=== PATIENT | female | born 1960 | race Caucasian/White ===

== ENCOUNTER 2017-09-06 14:03 | Emergency (ER) | payer OTHER ==
--- NOTE | 2017-09-06 14:28 | EDPHY ---
H & P Stated Complaint: vaginal itching and burning x 2 days Time Seen by Provider: 09/06/17 14:18 HPI/ROS: CHIEF COMPLAINT: Vaginal itching HISTORY OF PRESENT ILLNESS: 57-year-old female presents with vaginal itching. She recently completed a course of antibiotics for urinary tract infection. After completion of antibiotics, she developed vaginal itchiness and discharge. She was diagnosed with a yeast infection and placed on Diflucan. She took 2 doses of Diflucan and the symptoms completely resolved. However she developed recurrent vaginal discharge and itchiness yesterday. History of multiple vaginal yeast infections in the past, occasionally requires multiple days of Diflucan to resolve. Has used Monistat and other vaginal preparations without alleviation in sx in past. Otherwise asymptomatic. - Medical/Surgical History Hx Asthma: No Hx Chronic Respiratory Disease: No Hx Diabetes: No Hx Cardiac Disease: No Hx Renal Disease: No Hx Cirrhosis: No Hx Alcoholism: No Hx HIV/AIDS: No Hx Splenectomy or Spleen Trauma: No Other PMH: Psych - Social History Smoking Status: Never smoked Alcohol Use: Sober - Physical Exam Exam: General Appearance: Alert, pleasant Eyes: Pupils equal and round, no conjunctival pallor ENT, Mouth: Mucous membranes moist Neck: Normal inspection Respiratory: Normal respiratory rate Cardiovascular: Regular rate and rhythm Gastrointestinal: Abdomen is soft and nontender Neurological: A&O, nonfocal exam Skin: Warm and dry Extremities: Normal inspection Psychiatric: Mood and affect normal Constitutional: Initial Vital Signs Temperature (C) 37.0 C 09/06/17 14:07 Heart Rate 84 09/06/17 14:07 Respiratory Rate 16 09/06/17 14:07 O2 Sat (%) 97 09/06/17 14:07 O2 Delivery Mode Room Air Allergies/Adverse Reactions: penicillin Allergy (Verified 08/31/15 11:28) Sulfa (Sulfonamide Antibiotics) Allergy (Verified 08/31/15 11:28) Home Medications: Medication Instructions Recorded Doxepin HCl [Silenor] 0 mg PO DAILY 10/22/14 Venlafaxine Xr [Effexor Xr] 0 mg PO 10/22/14 lamoTRIgine [LaMICtal] 0 10/22/14 Fluconazole [Diflucan (*)] 150 mg PO DAILY #10 tab 09/06/17 Lipitor 09/06/17 Medical Decision Making ED Course/Re-evaluation: This patient presents with recurrent vaginal yeast infection. Diflucan prescribed. Follow up with PCP if symptoms do not resolve. Departure - Departure Disposition: Home, Routine, Self-Care Clinical Impression: Vaginal yeast infection Condition: Good Instructions: Yeast Infection (ED) Referrals: Julita Flores DO [Primary Care Provider] - As per Instructions Prescriptions: Fluconazole [Diflucan (*)] 150 mg PO DAILY #10 tab
== END 2017-09-06 14:41 | disposition home or self-care (01) ==
DX: B37.3 Candidiasis of vulva and vagina (principal)

== ENCOUNTER 2017-09-21 19:28 | Emergency (ER) | payer OTHER ==
[2017-09-21 19:37] VITALS: BP 114/72
--- NOTE | 2017-09-21 19:51 | EDPHY ---
General Time Seen by Provider: 09/21/17 19:46 Narrative: CHIEF COMPLAINT: "Bladder pain" HISTORY OF PRESENT ILLNESS: Patient presents with complaints of lower abdominal and "bladder pain." Has been present on off for a month. She was diagnosed with 1st part of the month with urinary tract infection treated with ciprofloxacin. She developed vaginal use infection, she was treated orally with Diflucan x2. She had resolution of the candidal infection, but she says the UTI has not fully gone away. She has discomfort with urination, frequent urination, incomplete urination. She has no flank pain. No fever, chills. She does have some vaginal discomfort but reports a recent estrogen ring implant. No modifying factors. She has no other associated complaints or modifying factors. REVIEW OF SYSTEMS: Ten systems reviewed and are negative unless otherwise noted in the HPI PCP: Aydee Dinero SPECIALISTS: [facility] PAST MEDICAL HISTORY: Bipolar disorder, recurrent UTIs, hypothyroid PAST SURGICAL HISTORY: No recent surgeries SOCIAL HISTORY: Nonsmoker. Lives here independently. FAMILY HISTORY: Noncontributory EXAMINATION General Appearance: Alert, no distress Head: normocephalic, atraumatic Eyes: Pupils equal and round, no conjunctival pallor or injection ENT, Mouth: Mucous membranes moist Neck: Normal inspection, supple, non-tender Respiratory: Lungs are clear to auscultation Cardiovascular: Regular rate and rhythm Gastrointestinal: Abdomen is soft and nondistended. There is mild tenderness suprapubic abdomen. No rebound. No guarding. No palpable masses. No CVA tenderness. Back: non-tender, no bony abnormalities Neurological: A&O, nonfocal, normal gait Skin: Warm and dry, no rash Extremities: Nontender, no pedal edema Psychiatric: Mood and affect normal DIFFERENTIAL DIAGNOSES: Including but not limited to cystitis, in no cystitis, urethritis, pyelonephritis, UTI, vaginitis MDM: 7:50 P.M. Lower abdominal discomfort described as bladder pain and discomfort. No flank pain. No fever. No nausea vomiting. Abdominal exam is completely benign. Urinalysis has been provided. 8:05 p.m. Urinalysis does reveal evidence of urinary tract infection. Patient does not want a pelvic exam performed she has have 1 done recently. I do feel that she warrants antibiotics for this and she may need antibiotics changed, once a urine culture results, which I have ordered. She has benign abdominal examination with normal vital signs, I do not feel she warrants imaging or further laboratory studies at this time. She agrees with this. I have ordered Keflex after discussing with attending physician. She has instructions to follow up with primary care physician Dr. Ocampo for further struck shins and care. ED precautions for any fever, flank pain, nausea vomiting. She is comfortable this plan and discharged home stable condition. SUPERVISION: Patient was independently examined, but I discussed the case with my secondary supervising physician Dr. Lyn - History Smoking Status: Never smoked - Objective Vital Signs: Initial Vital Signs Temperature (C) 98.1 F 09/21/17 19:33 Heart Rate 75 09/21/17 19:33 Respiratory Rate 18 09/21/17 19:33 Blood Pressure 114/72 09/21/17 19:33 O2 Sat (%) 95 09/21/17 19:33 O2 Delivery Mode Room Air Allergies/Adverse Reactions: penicillin Allergy (Verified 08/31/15 11:28) Sulfa (Sulfonamide Antibiotics) Allergy (Verified 08/31/15 11:28) Home Medications: Medication Instructions Recorded lamoTRIgine [LaMICtal] 0 10/22/14 Lipitor 09/06/17 Cephalexin [Keflex (*)] 500 mg PO BID #14 cap 09/21/17 Synthroid 09/21/17 Zoloft 100mg (*) 09/21/17 Microbiology Results: MICROBIOLOGY 09/21/17 19:40 Urine,Clean Catch Urine Culture - Preliminary Four [place] Types Departure - Departure Disposition: Home, Routine, Self-Care Clinical Impression: Acute cystitis with hematuria, Suprapubic pain, acute Condition: Good Instructions: Urinary Tract Infection in Women (ED), Interstitial Cystitis (ED) Additional Instructions: 1. Antibiotics as prescribed to completion 2. Contact primary care physician tomorrow morning for care to follow up on the urine culture that has been ordered here 3. Return here for worsening pain, fever, flank pain, vomiting Referrals: Julita Flores DO [Primary Care Provider] - As per Instructions Rosa Ocampo MD [Medical Doctor] - As per Instructions Prescriptions: Cephalexin [Keflex (*)] 500 mg PO BID #14 cap
== END 2017-09-21 20:30 | disposition home or self-care (01) ==
DX: N30.01 Acute cystitis with hematuria (principal); B96.89 Other specified bacterial agents as the cause of diseases classified elsewhere

== ENCOUNTER → 2017-12-24 | Outpatient (CLI) | payer OTHER | LOC: FIMAGING 12:49 | PROVIDERS: ATTEND Specialist | DX: N20.0 Calculus of kidney (principal); M41.86 Other forms of scoliosis, lumbar region ==

== ENCOUNTER 2018-09-18 06:05 | Emergency (ER) | payer OTHER | END 2018-09-18 07:41 | disposition home or self-care (01) ==